=== PATIENT | male | born 1980 | race Caucasian/White ===

== ENCOUNTER → 2017-02-06 | Outpatient (CLI) | payer OTHER ==
--- NOTE | 2017-02-06 17:11 | MR ---
EXAMINATION TYPE: MR knee RT wo con DATE OF EXAM: 02/06/2017 COMPARISON: NONE HISTORY: Right knee pain TECHNIQUE: Multiplanar, multisequence imaging of the right knee is performed without IV contrast. FINDINGS: MEDIAL MENISCUS: Anterior and posterior horns are intact without tear. LATERAL MENISCUS: Anterior and posterior horns are intact without tear. CRUCIATE LIGAMENTS: The anterior and posterior cruciate ligaments are intact and unremarkable. COLLATERAL LIGAMENTS: The medial collateral ligament and lateral collateral ligament complex are inta ct and unremarkable. EXTENSOR MECHANISM: Visualized quadriceps and patellar tendons are intact. EFFUSION: Minimal joint effusion is present. POPLITEAL CYST: No popliteal/torres cyst. TRICOMPARTMENT SPACES: There is mild diffuse narrowing throughout the tricompartment regions. CARTILAGE: There is diffuse thinning of the articular cartilage. Consider osteoarthritic degenerative change. This appears thinner than expected for patient of this age. BONE MARROW SIGNAL: No focal abnormal marrow signal is appreciated. OTHER: No additional significant abnormality is appreciated. IMPRESSION: Mild osteoarthritic degenerative change greater than expected for the patient age. Minimal joint effu adilia is present.
== END | disposition home or self-care (01) ==
LOC: RADMRIMAIN 15:35
PROVIDERS: ATTEND Orthopaedic Surgery
DX: M17.11 Unilateral primary osteoarthritis, right knee (principal)

== ENCOUNTER → 2019-03-19 | Outpatient (CLI) | payer OTHER ==
--- NOTE | 2019-03-19 12:20 | XR ---
EXAMINATION TYPE: XR lumbosacral spine min 4V DATE OF EXAM: 03/19/2019 CLINICAL HISTORY: pain COMPARISON: NONE TECHNIQUE: Frontal, lateral, and oblique images of the lumbar spine are obtained. FINDINGS: There are 5 lumbar type vertebral bodies identified. The lumbar spine shows satisfactory alignment without evidence of acute fracture or dislocation. Vertebral body heights are within normal limits. Disc spaces are well preserved. The overlying soft tissue appears unremarkable. IMPRESSION: No acute fracture or dislocation is seen in the lumbar spine. ICD 10 NO FRACTURE, INITIAL EVALUATION
--- NOTE | 2019-03-19 14:17 | CT ---
EXAMINATION TYPE: CT abdomen pelvis wo con DATE OF EXAM: 03/19/2019 COMPARISON: HISTORY: 38-year-old male LLQ pain CT DLP: 839.3 mGycm. Automated exposure control for dose reduction was used. TECHNIQUE: Contiguous axial scanning of the abdomen and pelvis without IV contrast. Coronal and sagit anh reconstructions performed. FINDINGS: Heart normal size without pericardial effusion. Lung bases clear without pleural effusion. Small hiatal hernia. Liver mildly enlarged at 19.2 cm. Otherwise, noncontrast appearance of the liver, adrenal glands, kid neys, spleen with tiny superior splenule, pancreas appear within normal limits. Cholecystectomy clips. No dilated small bowel, free fluid, or free air. A few prominent right lower quadrant mesenteric lymph nodes measuring up to 5 mm. Otherwise, no mesen teric or retroperitoneal lymphadenopathy. Appendix not seen, possibly surgically absent or very small in caliber. Mild stool burden without pericolonic inflammatory change. Prostate gland mildly enlarged at 4.4 cm wide. No abnormal fluid collection the pelvis or pelvic lymp hadenopathy. Bladder is nondistended. Bones: No osseous destructive process. IMPRESSION: 1. Mild hepatomegaly (19.2 cm), small hiatal hernia, mild stool burden, and mild prostatomegaly (4.4 cm wide). 2. A few prominent right lower quadrant mesenteric lymph nodes measuring up to 5 mm likely reactive/ post inflammatory. Mild mesenteric adenitis is possible.
== END | disposition home or self-care (01) ==
LOC: RADCTMAIN 11:51
PROVIDERS: ATTEND Family Medicine
DX: R10.84 Generalized abdominal pain (principal); R10.31 Right lower quadrant pain; R16.0 Hepatomegaly, not elsewhere classified; K44.9 Diaphragmatic hernia without obstruction or gangrene; R19.5 Other fecal abnormalities; N40.0 Benign prostatic hyperplasia without lower urinary tract symptoms; Z88.0 Allergy status to penicillin
CPT/HCPCS: 72110; 74176

== ENCOUNTER → 2020-06-09 | Outpatient (CLI) | payer BC ==
--- NOTE | 2020-06-09 13:41 | XR ---
EXAMINATION TYPE: XR chest 2V DATE OF EXAM: 06/09/2020 COMPARISON: None INDICATION: Cough TECHNIQUE: Frontal and lateral views of the chest are obtained. FINDINGS: The heart size is normal. The pulmonary vasculature is normal. The lungs are clear. IMPRESSION: 1. No acute pulmonary process.
== END | disposition home or self-care (01) ==
LOC: RADXRMAIN 13:22
PROVIDERS: ATTEND Family Medicine
DX: R05 Cough (principal)
CPT/HCPCS: 71046

== ENCOUNTER → 2020-10-31 | Outpatient (CLI) | payer BC ==
--- NOTE | 2020-10-31 12:34 | XR ---
COMPARISON: None Available CLINICAL HISTORY: 40-year-old male with slight into base with painful leg anteriorly. FINDINGS: AP and lateral view of the Right tibia and fibula, four images The right tibia and fibula are intact. No evidence of acute fracture or dislocation. Mild narrowing o f the medial compartment joint space of the right knee. Tiny Achilles calcaneal spur. IMPRESSION: 1. No evidence of acute fracture or dislocation of the right tibia or fibula..
== END | disposition home or self-care (01) ==
LOC: RADXRMAIN 09:04
PROVIDERS: ATTEND Family Medicine
DX: M79.604 Pain in right leg (principal)